=== PATIENT | male | born 1975 | race Caucasian/White ===

== ENCOUNTER 2016-06-30 10:11 | Emergency (ER) | payer OTHER ==
[~2016-06-30] VITALS: Ht 167.6 cm; Wt 63.5 kg
[~2016-06-30 10:11] MED LIST: BACTRIM DS 8001 TA1 PO; VICODIN 5/500 505 MG PO
[2016-06-30] MEDS ORDERED: SILVADENE,SSD C50 GM PO (12:15)
== END 2016-06-30 12:20 | disposition home or self-care (01) ==
LOC: ED 10:11
DX: T23.272A Burn of second degree of left wrist, initial encounter (principal); X16.XXXA Contact with hot heating appliances, radiators and pipes, initial encounter; Y93.9 Activity, unspecified; Y92.9 Unspecified place or not applicable; Y99.9 Unspecified external cause status

== ENCOUNTER → 2024-10-31 | Outpatient (CLI) | payer BC ==
[~2024-10-31] MED LIST changes: +SILVADENE,SSD C50 GM PO
[2024-10-31 12:15] LABS: BUN 12 mg/dl (9-23); SGPT/ALT 27 U/L (5-49)
== END | disposition home or self-care (01) ==
LOC: US 11:00 → LAB 11:10
PROVIDERS: ATTEND Orthopaedic Surgery
DX: M79.605 Pain in left leg (principal); R53.83 Other fatigue